=== PATIENT | male | born 1960 | race Two or more races ===

== ENCOUNTER 2019-02-15 12:36 | Emergency (ER) | payer SELFPAY ==
[~2019-02-15] VITALS: Ht 172.7 cm; Wt 100.0 kg
[2019-02-15 12:39] VITALS: BP 125/82
== END 2019-02-15 13:49 | disposition left against medical advice (07) ==
LOC: ER 12:36
DX: Z53.21 Procedure and treatment not carried out due to patient leaving prior to being seen by health care provider (principal)